=== PATIENT | female | born 1955 | race African-American/Black ===

== ENCOUNTER 2017-01-06 18:03 | Emergency (ER) | payer OTHER, MEDICAID ==
[~2017-01-06] VITALS: Ht 154.9 cm; Wt 67.1 kg
[2017-01-06] MEDS ORDERED: SODIUM CHLORIDE 0.9% 1,000 ML IV ONE ×2 (18:51→20:15)
[2017-01-06] MEDS ORDERED: ONDANSETRON HCL 4 MG/2 ML VIAL IV ONE (19:00)
[2017-01-06] MEDS ORDERED: PROMETHAZINE HCL 25 MG/ML 1ML IV ONE (19:15)
[2017-01-06 19:25] LABS: Basophils # (auto) 0.1 uL; CONDITION Y; DEFINITIVE SEE PRINTOUT; Eosinophils # (auto) 0 uL; Eosinophils % (auto) 0.1 % (0.0-7.0); Hematocrit 39.4 % (36.0-46.0); Hemoglobin 13.1 g/dL (12.2-16.2); Lymphocytes # (auto) 2.1 uL; Lymphocytes % (auto) 24.6 % (10.0-50.0); Mean Corpuscular Hemoglobin 32.4 pg (28.0-32.0); Mean Corpuscular Hgb Conc. 33.3 g/dL (32.0-36.0); Mean Corpuscular Volume 97.4 fL (80.0-100.0); Mean Platelet Volume 9.3 fL (7.4-10.4); Monocytes # (auto) 1.4 uL; Monocytes % (auto) 15.8 % (0.0-12.0); Neutrophils # (auto) 5.1 uL; Neutrophils % (auto) 58.5 % (37.0-80.0); Platelet Count (auto) 156 10^3/uL (140-450); White Blood Cell 8.7 10^3/uL (4.4-10.8)
[2017-01-06] MEDS ORDERED: HYDROmorphone HCL 2 MG/ML VL IV ONE (19:30)
[2017-01-06 19:42] LABS: Albumin 2.6 g/dL (3.4-5.0); BUN/Creatinine Ratio 15.5
[2017-01-06 19:45] LABS: Bilirubin, Total 1.7 mg/dL (0.2-1.0); Total Protein 6.2 g/dL (6.4-8.2)
[2017-01-06 19:52] LABS: Potassium 4.8 mmol/L (3.5-5.1)
[2017-01-06 20:49] LABS: Anisocytosis Moderate; Platelet Estimate Adequate
[2017-01-06 20:50] LABS: Ovalocytes FEW; Tear Drop Cells FEW
[2017-01-06 22:59] VITALS: BP 153/91
== END 2017-01-06 23:48 | disposition home or self-care (01) ==
LOC: ER 18:20
DX: E86.0 Dehydration (principal); R19.7 Diarrhea, unspecified; R10.84 Generalized abdominal pain; R11.2 Nausea with vomiting, unspecified; Z85.51 Personal history of malignant neoplasm of bladder; Z88.1 Allergy status to other antibiotic agents
CPT/HCPCS: 36415; 71010; 80053; 85025; 94761; 96361; 96374; 96375; 99285; J1170; J2405; J2550; J7030